=== PATIENT | male | born 1995 | race Caucasian/White ===

== ENCOUNTER 2017-10-13 13:46 | Emergency (ER) | payer OTHER ==
[~2017-10-13] VITALS: Ht 175.3 cm; Wt 111.1 kg
[2017-10-13] MEDS ORDERED: VENTOLIN HFA INH8 GM INH (14:28)
[2017-10-13 15:21] VITALS: BP 135/56
== END 2017-10-13 15:22 | disposition home or self-care (01) ==
LOC: M.ERS 13:46
DX: S61.011A Laceration without foreign body of right thumb without damage to nail, initial encounter (principal); F17.200 Nicotine dependence, unspecified, uncomplicated; Z88.2 Allergy status to sulfonamides; W26.0XXA Contact with knife, initial encounter; Y93.89 Activity, other specified; Y92.89 Other specified places as the place of occurrence of the external cause; Y99.8 Other external cause status